=== PATIENT | male | born 2000 | race African-American/Black ===

== ENCOUNTER 2022-06-08 15:04 | Emergency (ER) | payer MEDICAID ==
[~2022-06-08] VITALS: Ht 170.2 cm; Wt 64.0 kg
[2022-06-08 15:59] LABS: BASOPHILS % 0.6 % (0.0-2.0); EOSINOPHILS % 5.3 % (0.0-5.0); HEMOGLOBIN. 14.9 g/dL (14.0-18.0); LYMPHOCYTES % 22.2 % (20.0-50.0); MEAN CORPUSCULAR HEMOGLOBIN 33.8 pg (28.0-32.0); MEAN CORPUSCULAR VOLUME 97.4 fL (80.0-94.0); MEAN PLATELET VOLUME 9.2 fl (7.4-10.4); MONOCYTES % 9.5 % (2.0-8.0); NEUTROPHILS % 62.4 % (40.0-76.0); PLATELET 205 x1000/uL (130-400); RED BLOOD CELL COUNT 4.41 mill/uL (4.7-6.1); RED CELL DISTRIBUTION WIDTH 12.6 % (11.6-14.6)
[2022-06-08 16:10] LABS: ETHANOL BLOOD < 10 mg/dL
[2022-06-08 16:19] LABS: CHLORIDE 107 mEq/L (98-107)
[2022-06-08 19:45] VITALS: BP 105/63
== END 2022-06-08 20:05 | disposition home or self-care (01) ==
LOC: ER 15:04
DX: R40.4 Transient alteration of awareness (principal)
CPT/HCPCS: 36415; 80053; 80320; 83605; 85025; 99285; G0480